=== PATIENT | female | born 1945 | race Caucasian/White ===

== ENCOUNTER 2018-12-05 11:59 | Outpatient (CLI) | payer MEDICARE ==
--- NOTE | 2018-12-05 12:14 | RAD ---
XR Chest Pa Lat STANDARD HISTORY: . Pneumonia COMPARISON: 11/21/2018 FINDINGS: The heart size stable. There is continued elevation the right hemidiaphragm. The patchy opa city in the left lower lung/lingula demonstrates incomplete resolution. No new infiltrates, pneumothoraces or pleural effusions are seen IMPRESSION: Improving left-sided pneumonia without complete resolution since 11/21/2018
== END 2018-12-05 12:00 | disposition home or self-care (01) ==
LOC: MADRAD 11:59
PROVIDERS: ATTEND General Practice
DX: R91.8 Other nonspecific abnormal finding of lung field (principal); R05 Cough; J18.9 Pneumonia, unspecified organism
CPT/HCPCS: 71046